=== PATIENT | female | born 2005 | race Asian ===

== ENCOUNTER 2023-11-05 10:52 | Emergency (ER) | payer BC, SELFPAY ==
[2023-11-05 10:56] VITALS: BP 118/80; PULSE 73; RESP 18; TEMP 36.4; O2SAT 100; BMI 24.7
--- NOTE | 2023-11-05 12:35 | ED.HEATRA ---
HPI - Head Injury General Chief complaint: Head Injury/Pain Stated complaint: concussion Time Seen by Provider: 11/05/23 12:06 History of Present Illness HPI Narrative: This 18-year-old female comes in for evaluation of a head injury that occurred 2 days ago. She was in the shower in grew lightheaded and had brief loss of consciousness. She fell and hit her head but recovered rather quickly. She reports some mild headache since then but does not have any other symptoms. She went into work today where she wears a headset and reported increasing pain because of the pressure on the headset on the left side of her head. She did rotate the head set around but states that it still was causing symptoms for her. She wonders if she has a concussion. Related Data Home Medications Medication Instructions Recorded Confirmed norethindrone 1 mg-ethinyl 1 tab PO DAILY 11/05/23 11/05/23 estradiol 20 mcg (21)-iron 75 mg (7) tablet (Blisovi Fe 07/21 (28)) Allergies Allergy/AdvReac Type Severity Reaction Status Date / Time cephalexin [From Keflex] Allergy Verified 11/05/23 11:00 Review of Systems Status of ROS: Reports: 10 or more systems reviewed and unremarkable except as noted in History and below Narrative: Constitutional: No fevers, no weight gain or loss. Eyes: No discharge. No vision changes. HENT: No congestion, no sore throat, no ear pain. Cardiovascular: No chest pain, no palpitations. Respiratory: No shortness of breath, no wheezes, no cough. Gastrointestinal: No abdominal pain, no vomiting, no diarrhea. Genitourinary: No dysuria, no hematuria. Musculoskeletal: Normal range of motion. Skin: No rashes, no pruritis. Neurological: No dizziness, weakness, sensory change, speech change. Endo/Heme/Allergies: No bruising or bleeding. No polydipsia. Pysch: no suicidality, no anxiety, no insomnia. All other systems reviewed and are negative. PFSH PFSH Social History Do you use any of these nicotine containing products: None Non-prescribed substance use: denies use Exam Narrative: Exam Narrative: Constitutional: Well-developed, well-nourished, no acute distress. HEENT: Normocephalic, atraumatic. No sign of injury. She has some tenderness on the left temporal region above her ear. No sign of hematoma or skin injury. Neck: Normal range of motion. Nontender. Supple. Heart: Intact distal pulses. Lungs: No chest discomfort. No wheezes, rhonchi, or rales. Abdomen: Nontender. Back: Normal range of motion. Extremities: Normal range of motion. No injury. Skin: Intact. No rash. Warm. No erythema or pallor. Neurologic: No altered sensation. No weakness. Alert and oriented. Psychiatric: No suicidality. No anxiety or depression. No insomnia. Nursing notes and vitals signs are reviewed. Const: Vital Signs, click to edit/add: Vital Signs - 24 hr 11/05/23 10:56 Temperature 97.5 F L Pulse Rate [Right Pulse Oximeter] 73 Respiratory Rate 18 Blood Pressure [Ri ght Upper Arm] 118/80 Pulse Oximetry 100 Oxygen Delivery Me thod Room Air Course Vital Signs Vital signs: Initial Vital Signs Temperature 97.5 F L 11/05/23 10:56 Temperature Source Temporal Artery Scan 11/05/23 10:56 Pulse Rate 73 11/05/23 10:56 Respiratory Rate 18 11/05/23 10:56 Blood Pressure 118/80 11/05/23 10:56 Blood Pressure Mean 92 11/05/23 10:56 Blood Pressure Position Sitting 11/05/23 10:56 Pulse Oximetry 100 11/05/23 10:56 Oxygen Delivery Method Room Air 11/05/23 10:56 Vital Signs Temperature 97.5 F L 11/05/23 10:56 Pulse Rate 73 11/05/23 10:56 Respiratory Rate 18 11/05/23 10:56 Blood Pressure 118/80 11/05/23 10:56 Pulse Oximetry 100 11/05/23 10:56 Oxygen Delivery Method Room Air 11/05/23 10:56 Temperature 97.5 F L 11/05/23 10:56 Pulse Rate 73 11/05/23 10:56 Respiratory Rate 18 11/05/23 10:56 Blood Pressure 118/80 11/05/23 10:56 Pulse Oximetry 100 11/05/23 10:56 Oxygen Delivery Method Room Air 11/05/23 10:56 MDM - Head Injury MDM Narrative Medical decision making narrative: This patient comes in for evaluation of a head injury that occurred 2 days ago when she had syncope with prodrome while in the shower. She came in today because she went back to work in reported discomfort when wearing a had set. She does not have any other symptoms. I did review nexus head rules and stated that imaging is not indicated. I did also discuss matters related to concussion but it seems that this patient is not having typical symptoms of concussion either. She does have some tenderness where she bumped her head. There is no sign of injury externally. I did discuss matters related to return to normal activity. She also received a return to work note. Discharge Plan Discharge Clinical Impression: Closed head injury Patient Disposition: Home, Self-Care Condition: Stable Additional Instructions: Increase activity as tolerated. Use [id number] medicines as needed and directed. Follow up with MD or return if worsening. Prescriptions: No Action norethindrone-e.estradiol-iron [Blisovi Fe 07/21 (28)] 1 mg-20 mcg (21)/75 mg (7) tablet 1 tab PO DAILY Follow Up/Referrals: Provider,Not a Local [Primary Care Provider] - Stand Alone Forms: [employer] Info Instructions
== END 2023-11-05 12:53 | disposition home or self-care (01) ==
LOC: ED 12:50
PROVIDERS: Emergency Provider Emergency Medicine Emergency Medical Services
DX: S09.90XA Unspecified injury of head, initial encounter (principal); W19.XXXA Unspecified fall, initial encounter
CPT/HCPCS: 99282; 99283; 99284

== ENCOUNTER 2025-03-31 10:45 | Emergency (ER) | payer OTHER, BC, SELFPAY ==
--- OUTSIDE RECORDS SUMMARY | 2025-03-31 10:48 | XMS_ITS | Clinical Summary ---
Author Organization [employer] [facility] Address [address] [place] [id number] Care Team Providers Care [employer] Name Role Phone Joann Gibbons MD Primary Care Provi tanisha Allergies Active Allergy Reactions Criticality Noted Date Comments Cephalexin Rash Medium 11/20/2013 Medications inhalational spacing deviceIndications :Difficulty breathing For home use. 1 Device 05/12/20 Active Additional Information Patient not taking.Reported on 02/04/2025 norethin johnny-eth estrad-fe (1-20 mg-mcg) (Blisovi Fe 07/21 (28)) tabletIndications :Encounter for initial prescription of contraceptive pills Take 1 Tablet by mouth once daily. 84 Tablet 2 10/30/19 Active albuterol HFA 90 mcg/actuation inhalerIndication s:Difficulty breathing Inhale 2 Puffs by mouth every 4 hours if needed for Shortness Of Breath or Wheezing. 2 Each 2 11/21/19 Active EPINEPHrine 0.3 mg/0.3 mL auto-injectorIndi cations: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 Inject 0.3 mg (1 Pen) intramuscular each time if needed for Allergic Reaction. 2 Each 3 11/28/19 Active Additional Information Patient not taking.Reported on 02/04/2025 Active Problems Problem Noted Date Diagnosed Date Cervical cancer screening 09/23/2024 Overview (09/23/2024): 08/2024 NIL Plan: PAP due 08/2027 PTSD (post-traumatic stress disorder) 03/06/2023 Encounters Date Type Department Care Team Description 03/11/2025 Travel 02/12/2025 8:20 AM CDT [place] [facility] [place] [address] [place] [address] Lidia Ashford PA Concerns 02/11/2025 Travel 02/09/2025 Telephone [place] [address] [place] [address] David Salas MD Questions 02/09/2025 Telephone [facility] [address] [place] [address] Joann Gibbons MD Error-please disregard 02/09/2025 Telephone [place] [address] [place] [address] David Salas MD Results 02/05/2025 Telephone [facility] [address] [place] [address] Joann Gibbons MD Questions 02/04/2025 2:00 PM CDT Ancillary Procedure [place] [address] [place] [address] 02/04/2025 1:20 PM CDT Office Visit [place] [address] [place] [address] David Salas MD Ankle Injury (Rolled right ankle on Sunday and it is still painful) 02/04/2025 Travel 01/05/2025 1:00 PM CDT Office Visit [facility] [address] [place] [address] Mario Naqvi MD Allergies (Consult-lobster allergy, referred by Dr Gibbons) 01/05/2025 Travel from Last 3 Months Immunizations Immunization Administration Dates Next Due AMB Influenza, IIV3 (Age >=3 years) Preserve Free (Flu Clinic Only) 04/23/2012 AMB Influenza, IIV3 (Age >=3 years)(Flu Clinic Only) 05/15/2013,04/21/2010,04/29/2008 AMB Influenza, IIV4 PF (=>6 mos Flulaval,Fluzone Fluarix)(Flu Clinic Only) 04/20/2016,04/08/2014 DTaP 02/26/2008, 5,06/08/2004,09/13,2003 HIB HbOC (HibTITER) 12/08/2004 HIB-HepB (Comvax) 06/08/2004 HPV 9 (Gardasil 9) 05/10/2015 Hepatitis A (Peds) 10/14/2008,02/26/2008 Hepatitis B (Peds) 2003,2003 Human Papilloma Virus Vaccine 12/31/2014, 015 Inactivated Polio Vaccine 02/26/2008,01/2004,2003,09/13 Influenza, IIV3 (Age >=3 years) 04/21/2011,05/31,04/29/2007 Influenza, IIV4 07/06/2020, 9,02/26/2018,02/26,05/10/2015 MENINGOCOCCAL VACCINE 2 VIAL 2MO-55YO (MENVEO) 05/12/2019,10/30/2014 MMR 02/26/2008,06/08/2004 Pneumococcal conj 7-Valent (Prevnar 7) 4 Tdap 09/04/2024,10/30/2014 Varicella Vaccine 02/26/2008,06/08/2004 Social History Tobacco Use Types Packs/Day Years Used Date Smoking Tobacco: Never Passive Smoke Exposure: Never Smokeless Tobacco: Never Tobacco Cessation:Counseling Given: Not Answered Comments:No passive smoke exposure Alcohol Use Standard Drinks/Week Comments Yes 2 (1 standard drink = 0.6 oz pur e alcohol) PHQ-2 Answer Date Recorded PHQ-2 TOTAL SCORE 4 09/10/2024 Social Connections Answer Date Recorded Do you often feel lonely or isolated from those around you? 0 08/27/2024 Financial Resource Strain Answer Date R ecorded Difficulty of Paying Living Expenses 3 08/27/2024 Difficulty of Paying Living Expenses Not on file 08/27/2024 Food Insecurity Answer Date Recorded Do you worry your food will run out before you are able to buy more? 1 08/27/2024 Transportation Needs Answer Date Record ed Does lack of transportation keep you from medica l appointments? 1 08/27/2024 Does lack of transportation keep you from work, meetings or getting things that you need? 1 08/27/2024 Housing Stability Answer Date Recorded What is your housing situation today? 1 08/27/2024 Utilities Answer Date Recorded Do you have trouble paying f or utilities (for example, heat, electricity, water, phone)? 1 08/27/2024 Comments No Sex and Gender Information Value Date Recorded Sex Assigned at Not on file Legal Sex Female 7:25 AM ENVIRONMENTAL SERVICES SPECIALIST Gender Identity Not on file Sexual Orientation Not on file Obstetrics History Para Term AB IAB SAB Ectopic Multiple Livin g Live Births 0 0 0 0 0 0 0 0 0 0 0 Last Filed Vital Signs Vital Sign Reading Time Taken Comments Blood Pressure 122/74 02/12/2025 8:24 AM CDT Pulse 68 02/12/2025 8:24 AM CDT Temperature 36.8 C (98.2 F) 02/12/2025 8:24 AM CDT Respiratory Rate 16 04/21/2022 8:02 PM CDT Oxygen Saturation 99% 02/12/2025 8:24 AM CDT Inhaled Oxygen Concentration - - Weight 69.4 kg (153 lb) 02/12/2025 8:24 AM CDT Height 155.9 cm (5' 1.38) 02/12/2025 8:24 AM CD T Body Mass Index 28.55 02/12/2025 8:24 AM CDT Plan of Treatment Upcoming Encounters Date Type Department Care Team (Late st Contact Info) Description 05/18/2025 8:20 AM ENVIRONMENTAL SERVICES SPECIALIST Office Visit [facility] [address] [place] [address] Mario Naqvi MD [address] [facility] [place] [address] Health Maintenance Due Date Last Done Comments Hepatitis C screening for age 18-79 2021 COVID-19 vaccine series ( season) 2025 Influenza Vaccine (#1) 2025 , 03/21/2019, 02/26/2018, Additional history exists Chlamydia for age 16-24 09/04/2025 09/05/19, 11/20/2023, 08/15/2022, Additional history exists Depression screening for age 12+ 09/10/2025 09/10/2024 BMI (ht and wt on same day) for age 18+ 02/12/2026 02/12/2025, 01/05/2025, 11/20/2024, Additional history exists Pap test for age 21-65 09/05/2027 09/04/2024 Tetanus booster 09/04/2034 09/04/2024, 10/30/2014 RSV vaccine for adults or (1 - 1-dose 75+ series) 2078 Hepatitis B series for 19+ Completed 06/08, 2003, 2003 Pneumococcal series for age 6-49 Aged Out 06/08/2004 No longer eligible based on patient's age to complete this topic HPV series for age 9-45 Completed 05/10/20 15, 12/31/2014, 10/30/2014 Meningococcal series for age 11-21 Completed 05/12/2019, 10/30/2014 HIV for age 15-65 Completed 08/15/2022 Procedures Procedure Name Priority Date/Time Associated Diagnosis Comments XR FOOT 3 VIEWS RIGHT Routine 02/04/2025 2:06 PM CDT Right foot injury, initial encounter TX PERCUTANEOUS TESTS W/ALLERGENIC EXTRACTS Routine 01/05/2025 12:00 AM CDT 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 Adverse food reaction, initial encounter GC CHLAMYDIA TRACH PROBE Routine 09/04/2024 10:40 AM ENVIRONMENTAL SERVICES SPECIALIST Screening examination for STI MAT SEWER THIN PREP PAP SCREEN IMAGED Routine 09/04/2024 10:40 AM ENVIRONMENTAL SERVICES SPECIALIST Screening for malignant neoplasm of cervix LC HIV-1/O/2, 4TH GENERATION Routine 08/15/2022 9:02 AM ENVIRONMENTAL SERVICES SPECIALIST Screening for HIV (human immunodeficiency virus) from Last 3 Months or Most Recently Relevant to Health Maintenance Results * XR FOOT 3 VIEWS RIGHT (02/04/2025 2:06 PM CDT) Anatomical Region Laterality Modality FEET, FOOT R Computed Radiogr aphy 02/05/2025 2:1 1 PM CDT Narrative 02/05/2025 2:11 PM CDT For Patients: As a result of the Cures Act, medical imaging exams and procedure reports are released immediately into your electronic medical record. You may view this report before your referring provider. If you have questions, please contact your health care provider. Indication: Injury and pain Technique: Right foot 3 views. Comparison: 12/20/2010 Findings: Bones: Alignment is normal. No fractures or bone lesions. Joint spaces: Unremarkable. Soft tissues: Unremarkable. Impression: No sign of acute injury. Dictated by Victor M Ga MD @ 02/05/2025 2:11:07 PM (Electronically Signed) Procedure Note Victor M Ga MD - 02/05/2025 For Patients: As a result of the Cures Act, medical imagingexams and procedure reports are released immediately into your electronicmedical record. You may view this report before your referring provider.If you have questions, please contact your health care provider. Indication: Injury and pain Technique: Right foot 3 views. Comparison: 12/20/2010 Findings: Bones: Alignment is normal. No fractures or bone lesions. Joint spaces: Unremarkable. Soft tissues: Unremarkable. Impression: No sign of acute injury. Dictated by Victor M Ga MD @ 02/05/2025 2:11:07 PM (Electronically Signed) us David Salas MD GENERAL IMAGING Final Resul t * TX PERCUTANEOUS TESTS W/ALLERGENIC EXTRACTS (01/05/2025 12:00 AM CDT) us Mario Naqvi MD [facility] - ALLERGY AND IMMUNOLOG Y SERVICES Final Result * MAT SEWER THIN PREP PAP SCREEN IMAGED [[id number]] (09/04/2024 10:40 AM ENVIRONMENTAL SERVICES SPECIALIST) Case Report Gynecologic Cytology Report Case: [id number] Authorizing Provider: Joann Gibbons Collected: 09/04/2024 104Lizeth Finch MD Ordering Location: [facility] Received: 09/04/2024 1252 Clinic First Screen: Xochilt Barker Rescreen: Leilani Rubi Specimen: MAT SEWER ThinPrep Vial Screening, Cervical 09/23/2024 3:37 PM CDT [facility] [employer] [facility] INTERPRETATION/ RESULT NEGATIVE FOR INTRAEPITHELIAL LESION OR MALIGNANCY (NIL) (none) 09/23/2024 3:37 PM CDT [facility] at 1537 CDT SPECIMEN ADEQUACY Satisfactory for evaluation Endocervical component present 09/23/2024 3:37 PM CDT [facility] Date of LMP 09/03/2024 09/23/2024 3:37 PM CDT [facility] Last Pap Date NA 09/23/2024 3:37 PM CDT [facility] Last Pap Result First Pap/Unknown 3:37 PM CDT [facility] Abnormal Pap or [place] Bx in last 5 years No 09/23/2024 3:37 PM CDT [facility] Menstrual Status Regular Periods 09/23/2024 3:37 PM CDT [facility] [place] Bx Done Today No 09/23/2024 3:37 PM CDT [facility] Additional Information None given 09/23/2024 3:37 PM CDT [facility] Comment: Cytology is screened at [facility] [employer] Environment [facility] Laboratory - [address], [place] [address] and [facility] - [address] [place] [address] and [facility] - [address] [place] [address] Interpreted at [facility] [employer] Environment [facility] Laboratory - [address], [place] [address] Automated Review Successful 09/23/2024 3:37 PM CDT [facility] Comment:Specimen processed s uccessfully by automated residential electrician device, ThinPrep Imaging System, [employer] Note The pap test is a screening technique, not a diagnostic procedure. It is used primarily to screen for squamous cancers and precursor lesions. Published studies have shown that it is subject to both false negative and false positive results. The pap test should not be used as the sole means to diagnose or exclude pre-malignant and malignant lesions. 09/23/2024 3:37 PM CDT [facility] Other (Cervical) Non-Blood / Unknown 09/04/2024 10:40 AM ENVIRONMENTAL SERVICES SPECIALIST 09/04/2024 12:52 PM ENVIRONMENTAL SERVICES SPECIALIST Joann Gibbons MD PATHOLOGY/CYTOLOGY Final Result Performing Organization Address City/[facility]/ZIP Co de Phone Number [facility] [address] [place], [place] [id number], [place] * GC CHLAMYDIA DNA PCR [[id number]] (09/04/2024 10:40 AM ENVIRONMENTAL SERVICES SPECIALIST) CHLAMYDIA PROBE Negative 3:51 AM ENVIRONMENTAL SERVICES SPECIALIST [facility] N GONORRHOEAE PROBE Negative 09/05/2024 3:51 AM ENVIRONMENTAL SERVICES SPECIALIST [facility] Other ENDOCERVICAL CYTOLOGIC MATERIAL / Unknown Non-Blood / Unknown 09/04/2024 10:40 AM ENVIRONMENTAL SERVICES SPECIALIST 09/04/2024 12:52 PM ENVIRONMENTAL SERVICES SPECIALIST Joann Gibbons MD MICROBIOLOGY Fin al Result [facility] [address] [place] [id number], [place] * LC HIV-1/O/2, 4TH GENERATION (08/15/2022 9:02 AM ENVIRONMENTAL SERVICES SPECIALIST) HIV Scr 4th Gen Non Reactive Non Reactive 08/17/2022 11:09 AM ENVIRONMENTAL SERVICES SPECIALIST [facility] Comment: HIV Negative HIV-1/HIV-2 antibodies and HIV-1 p24 antigen were NOT detected. There is no laboratory evidence of HIV infection. Blood BLOOD SPECIMEN / Unknown Venipuncture / Unknown 08/15/2022 9:02 AM ENVIRONMENTAL SERVICES SPECIALIST 08/15/2022 9:04 AM ENVIRONMENTAL SERVICES SPECIALIST Narrative [facility] ([facility] - 08/17/2022 11:09 AM ENVIRONMENTAL SERVICES SPECIALIST Performed at: [address] [id number] Financial Reporting Specialist: Benigno Mason MD, Phone: [phone] us Joann Gibbons MD LABORATORY Fin al Result [facility] ([facility]) [facility] [place] [address], from Last 3 Months or Most Recently Relevant to Health Maintenance Insurance [place] Care Teams [employer] Relationship Specialty Start Date End Date Joann Gibbons MD [address] [place] [address] PCP - General 03/25/07
[2025-03-31 11:05] VITALS: BP 123/82; PULSE 95; RESP 16; TEMP 36.4; O2SAT 99
--- NOTE | 2025-03-31 11:56 | PC.NURSE ---
Called [facility] dispatch to report dog bite. 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 Per patient, [facility] owners and to patients knowledge the owners have not answered their phone. to call back.
--- NOTE | 2025-03-31 13:03 | ED.ANIMALBIT ---
HPI - Animal Bite General Date Seen: 03/31/25 Chief Complaint: Animal Bite Stated Complaint: Dog bite R malave Time Seen by Provider: 03/31/25 11:13 Source: patient Mode of arrival: ambulatory Limitations: no limitations History of Present Illness HPI narrative: Patient is a 19-year-old female presenting to the emergency department for a dog bite to her right calf. This occurred 6 days ago. 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 She informed her workup what occurred in they were supposed to find out if the dog is vaccinated but it has been 6 days now and she has not heard back from them yet. She spoke to her work again and told him that within a like it back to her soon should just need to come to the emergency department. Denies any fevers, chills, lightheadedness, dizziness, weakness, numbness, abdominal pain. Denies any pain at the bite site. No other concerns noted Related Data Home Medications ?Medication ?Instructions ?Recorded ?Confirmed norethindrone 1 mg-ethinyl 1 tab PO DAILY 11/05/23 03/31/25 estradiol 20 mcg (21)-iron 75 mg (7) tablet ([place] Fe 07/21 (28)) Allergies Allergy/AdvReac Type Severity Reaction Status Date / Time cephalexin (From Keflex) Allergy Verified 03/31/25 11:09 Review of Systems Narrative: Pertinent systems reviewed and were negative unless stated in HPI PFSH PFSH Social History Smoking Status: Never smoker Do you use any of these nicotine containing products: None How often do you have a drink containing alcohol: never AUDIT-C Alcohol total score: 0 Non-prescribed substance use: denies use Exam Narrative: Exam Narrative: Const: Well-nourished, Well-developed, in now distress Eyes: PERRL, no conjunctival injection, and symmetrical lids HENT: Atraumatic external nose and ears. Moist mucous membranes. MSK:Extremities w/o deformity, Normal Active ROM Skin: Warm, Dry. 1 cm laceration to her left calf that is now scabbed over. Neuro: Normal Muscle tone, No focal neurological deficits. Psych: Awake, Alert, & Oriented x3. Appropriate mood and affect. Const: Vital Signs, click to edit/add: Vital Signs - 24 hr 03/31/25 11:05 Temperature 97.6 F Pulse Rate [Pulse Oximeter] 95 Respiratory Rate 16 Blood Pressure [Ri ght Upper Arm] 123/82 Pulse Oximetry 99 Oxygen Delivery Me thod Room Air Course Vital Signs Vital signs: Initial Vital Signs Temperature 97.6 F 03/31/25 11:05 Temperature Source Temporal Artery Scan 03/31/25 11:05 Pulse Rate 95 03/31/25 11:05 Pulse Rhythm Regular 03/31/25 11:05 Respiratory Rate 16 03/31/25 11:05 Blood Pressure 123/82 03/31/25 11:05 Blood Pressure Mean 95 03/31/25 11:05 Blood Pressure Position Sitting 03/31/25 11:05 Pulse Oximetry 99 03/31/25 11:05 Oxygen Delivery Method Room Air 03/31/25 11:05 Vital Signs Temperature 97.6 F 03/31/25 11:05 Pulse Rate 95 03/31/25 11:05 Respiratory Rate 16 03/31/25 11:05 Blood Pressure 123/82 03/31/25 11:05 Pulse Oximetry 99 03/31/25 11:05 Oxygen Delivery Method Room Air 03/31/25 11:05 Temperature 97.6 F 03/31/25 11:05 Pulse Rate 95 03/31/25 11:05 Respiratory Rate 16 03/31/25 11:05 Blood Pressure 123/82 03/31/25 11:05 Pulse Oximetry 99 03/31/25 11:05 Oxygen Delivery Method Room Air 03/31/25 11:05 MDM - Animal Bite MDM Narrative Medical decision making narrative: Patient is a 19-year-old female presenting to emergency department for a dog bite on her right calf. There is not appear to be any infection or inflammation around the dog bite. It is painless currently. We were able to get hold of please and we have learned that the dog's vaccine in 2022. They were able to bring the dog in to quarantine. It is currently not showing any signs of rabies that they can see. Considering this is a small indoor dog that is unlikely to have much contact with while animals and cases of dogs having rabies is so rare that after shared decision-making it was decided to not do rabies prophylaxis. If the dog does start to show any signs of rabies they will contact the patient. She is safe for discharge and is agreeable to this plan. Discharge Plan Discharge Clinical Impression: Dog bite Qualifiers: Encounter type: initial encounter Qualified Code(s): W54.0XXA - Bitten by dog, initial encounter Patient Disposition: Home, Self-Care Condition: Stable Instructions: Rabies (ED) Additional Instructions: Stay in contact with the police to make sure the dog's not showing any signs of rabies. They will quarantine the dog for 10 days to make sure dog is not showing any signs of rabies. Considering when you were bitten the initial 10 days will be up 4 days from now. Return for new or concerning symptoms. Prescriptions: No Action norethindrone-e.estradiol-iron [[place] Fe 07/21 (28)] 1 mg-20 mcg (21)/75 mg (7) tablet 1 tab PO DAILY Follow Up/Referrals: Joann Gibbons MD [Primary Care Provider, Pediatrics] Stand Alone Forms: [employer] Info Instructions
--- NOTE | 2025-03-31 13:33 | PC.NURSE ---
[facility] calling back. The dog that bite the patient is not up to date on its rabies vaccine. They are taking the dog into quarantine for 10 days. At the end of 10 days they will call the patient back with an update.
== END 2025-03-31 13:46 | disposition home or self-care (01) ==
PROVIDERS: Emergency Provider Student in an Organized Health Care Education/Training Program; PCP Pediatrics
DX: S81.851A Open bite, right lower leg, initial encounter (principal); W54.0XXA Bitten by dog, initial encounter; Y99.0 Civilian activity done for income or pay
CPT/HCPCS: 99283